=== PATIENT | male | born 1995 | race American Indian/Alaskan Native ===

== ENCOUNTER 2020-08-07 20:28 | Emergency (ER) | payer OTHER ==
[2020-08-07] MEDS ORDERED: IBUPROFEN 600 MG TAB PO ONE (20:51)
[2020-08-07] MEDS ORDERED: ACETAMINOPHEN 500 MG TAB PO ONE (20:51)
[2020-08-07 20:54] VITALS: BP 126/81
--- NOTE | 2020-08-07 21:20 | XRay Report ---
LUMBAR SPINE 3 VIEWS INDICATION: PAIN COMPARISON: None. FINDINGS: No acute, displaced fracture is seen. Alignment is within normal limits. Disc space height is maintained. No significant degenerative changes. CONCLUSION: 1. No acute findings. Signer Name: Nawaf Wilkins MD Signed: 08/07/2020 9:16 PM Workstation Name: [id number]
--- NOTE | 2020-08-07 21:33 | Emergency Department Report ---
ED Back Pain/Injury HPI - General Chief Complaint: Back Pain/Injury Stated Complaint: BACK PAIN Source: patient Limitations: No Limitations - History of Present Illness Initial Comments: Patient is a 25-year-old -[place] male with no past medical history presents to the ED with complaint of acute onset persistent severe nontraumatic low back pain for the last 2 days worse in the last 12 hours. Patient states that the pain is constant and sharp and appears to be in the vertebral area of his lower back. Patient denies fall, traumatic injury, heavy lifting, chest pain or shortness of breath, dysuria, urinary frequency and urgency, hematuria, numbness and tingling or weakness of lower extremities bilaterally, urinary retention, bowel incontinence or saddle paresthesia, fever and chills. MD Complaint: back pain (Lower) -: Sudden, days(s) (2) Similar Symptoms Previously: No Place: home Radiation: none Severity: severe Severity scale (0 -10): 8 Quality: sharp, aching Consistency: constant Improves With: none Worsens With: movement, walking Context: other (woke up with pain) Associated Symptoms: denies other symptoms. denies: confusion, weakness, chest pain, numbness, difficulty walking, cough, difficulty urinating, diaphoresis, incontinence, constipation, headaches, abdominal pain, loss of appetite, nausea/vomiting, rash, seizure, shortness of breath, syncope, other - Related Data Previous Rx's Medication Instructions Recorded Last Taken Type Ibuprofen [Motrin] 600 mg PO Q8H PRN #30 tablet 08/07/20 Unknown Rx methOCARBAMOL [Robaxin TAB] 500 mg PO Q12H PRN #24 tab 08/07/20 Unknown Rx Allergies Allergy/AdvReac Type Severity Reaction Status Date / Time No Known Allergies Allergy Unverified 01/04/20 15:33 ED Review of Systems ROS: Stated complaint: BACK PAIN Other details as noted in HPI Constitutional: denies: chills, fever Eyes: denies: eye pain, eye discharge, vision change ENT: denies: ear pain, throat pain Respiratory: denies: cough, shortness of breath, wheezing Cardiovascular: denies: chest pain, palpitations Endocrine: no symptoms reported Gastrointestinal: denies: abdominal pain, nausea, vomiting, diarrhea, constipation, hematemesis, hematochezia Genitourinary: denies: urgency, dysuria Musculoskeletal: back pain (lower back pain), arthralgia (lower back pain). denies: joint swelling Skin: denies: rash, lesions Neurological: denies: headache, weakness, paresthesias Psychiatric: denies: anxiety, depression Hematological/Lymphatic: denies: easy bleeding, easy bruising ED Past Medical Hx - Past Medical History Previous Medical History?: No - Surgical History Past Surgical History?: No - Social History Smoking Status: Never Smoker Substance Use Type: None - Medications Home Medications: Home Medications Medication Instructions Recorded Confirmed Last Taken Type Ibuprofen [Motrin] 600 mg PO Q8H PRN #30 tablet 08/07/20 Unknown Rx methOCARBAMOL [Robaxin TAB] 500 mg PO Q12H PRN #24 tab 08/07/20 Unknown Rx ED Physical Exam - General Limitations: No Limitations General appearance: alert, in no apparent distress - Head Head exam: Present: atraumatic, normocephalic, normal inspection - Eye Eye exam: Present: normal appearance, PERRL, EOMI Pupils: Present: normal accommodation - ENT ENT exam: Present: normal exam, normal orophraynx, mucous membranes moist, TM's normal bilaterally, normal external ear exam - Neck Neck exam: Present: normal inspection, full ROM - Respiratory Respiratory exam: Present: normal lung sounds bilaterally. Absent: respiratory distress, wheezes, rales, rhonchi, chest wall tenderness, accessory muscle use, prolonged expiratory - Cardiovascular Cardiovascular Exam: Present: regular rate, normal rhythm, normal heart sounds. Absent: systolic murmur, diastolic murmur, rubs, gallop - GI/Abdominal GI/Abdominal exam: Present: soft, normal bowel sounds. Absent: tenderness, guarding, rebound, hyperactive bowel sounds - Extremities Exam Extremities exam: Present: normal inspection, full ROM, normal capillary refill. Absent: tenderness, pedal edema, joint swelling - Back Exam Back exam: Present: normal inspection, full ROM, tenderness (Palpable lumbosacral paraspinal musculoskeletal tenderness), muscle spasm, paraspinal tenderness. Absent: CVA tenderness (R), CVA tenderness (L), vertebral tenderness - Neurological Exam Neurological exam: Present: alert, oriented X3, CN II-XII intact, normal gait, reflexes normal - Psychiatric Psychiatric exam: Present: normal affect, normal mood - Skin Skin exam: Present: warm, dry, intact, normal color. Absent: rash ED Course Vital Signs 08/07/20 08/07/20 08/07/20 20:48 21:00 21:01 Temperature 98.1 F Pulse Rate 83 Respiratory 20 20 20 Rate Blood Pressure 126/81 O2 Sat by Pulse 96 Oximetry ED Medical Decision Making - Radiology Data Radiology results: report reviewed, image reviewed Findings [facility] [address] [place] [address] XRay Report Signed Patient: GUANAKO JOSEPH MR#: [id number] : 1995 Acct:[id number] Age/Sex: 25 / M ADM Date: 08/07/20 Loc: ED Attending Dr: Ordering Physician: KONRAD THAKKAR Date of Service: 08/07/20 Procedure(s): XR spine lumbosacral 2-3V Accession Number(s): [id number] cc: KONRAD THAKKAR Fluoro Time In Minutes: LUMBAR SPINE 3 VIEWS INDICATION: PAIN COMPARISON: None. FINDINGS: No acute, displaced fracture is seen. Alignment is within normal limits. Disc space height is maintained. No significant degenerative changes. CONCLUSION: 1. No acute findings. Signer Name: Nawaf Wilkins MD Signed: 08/07/2020 9:16 PM Workstation Name: [id number] Transcribed By: JANUARY Dictated By: Nawaf Wilkins MD Electronically Authenticated By: Nawaf Wilkins MD Signed Date/Time: 08/07/202115 DD/ 15 TD/TT: - Medical Decision Making This is a 25-year-old -[place] male with no past medical history presents to the ED with complaint of acute onset persistent severe nontraumatic low back pain for the last 2 days worse in the last 12 hours. Patient states that the pain is constant and sharp and appears to be in the vertebral area of his lower back. In the ED, patient is alert and oriented x3 and is not in distress. Patient was treated for pain in the ED and the L-spine x-ray showed no acute fractures or subluxations of the lumbar spine or vertebral discs. On reevaluation, patient's pain is well controlled with medications. Patient symptoms are likely musculoskeletal, and patient will discharge home on pain medications and muscle relaxants and advised to follow-up with his primary care physician in 5 to 7 days for reevaluation or return to the ED immediately if symptoms get worse. - Differential Diagnosis Muscle spasm; muscle strain; musculoskeletal pain Critical care attestation.: If time is entered above; I have spent that time in minutes in the direct care of this critically ill patient, excluding procedure time. ED Disposition Clinical Impression: Spasm of muscle of lower back, Strain of muscle, fascia and tendon of lower back, initial encounter, Acute bilateral low back pain without sciatica Disposition: TO HOME OR SELFCARE Is pt being admited?: No Does the pt Need Aspirin: No Condition: Stable Instructions: Muscle Cramps and Spasms, [id number], Low Back Sprain or Strain Rehab-SportsMed Additional Instructions: The x-ray of your lumbar spine shows no acute fractures or subluxations. Your pain is likely musculoskeletal muscle spasm or muscle strain of your low back. Therefore take medications with food, drink plenty of fluids and follow-up with your primary care physician in 5 to 7 days for reevaluation. Return to the ED immediately if symptoms get worse. Prescriptions: Ibuprofen [Motrin] 600 mg PO Q8H PRN #30 tablet PRN Reason: Pain methOCARBAMOL [Robaxin TAB] 500 mg PO Q12H PRN #24 tab PRN Reason: Pain , Severe (7-10) Referrals: [facility] [Provider Group] - 7-10 days Time of Disposition: 21:34 Print Language: TAMAZIGHT
== END 2020-08-07 22:31 | disposition home or self-care (01) ==
LOC: ED 20:28
DX: S39.012A Strain of muscle, fascia and tendon of lower back, initial encounter (principal); M62.830 Muscle spasm of back; Z79.899 Other long term (current) drug therapy; X58.XXXA Exposure to other specified factors, initial encounter; Y93.89 Activity, other specified; Y92.009 Unspecified place in unspecified non-institutional (private) residence as the place of occurrence of the external cause; Y99.8 Other external cause status
CPT/HCPCS: 72100; 99283